=== PATIENT | male | born 1985 | race Caucasian/White ===

== ENCOUNTER 2019-03-09 20:53 | Emergency (ER) | payer SELFPAY ==
--- NOTE | 2019-03-09 21:00 | NUR ---
CALLED FOR TRIAGE, PT NOT IN WAITING ROOM.
--- NOTE | 2019-03-09 21:07 | NUR ---
CALLED FOR TRIAGE, PT NOT IN WAITING ROOM.
--- NOTE | 2019-03-09 21:12 | NUR ---
CALLED FOR TRIAGE, PT NOT IN WAITING ROOM.
--- NOTE | 2019-03-09 22:39 | NUR ---
CALLED FOR TRIAGE, PT NOT IN WAITING ROOM.
== END 2019-03-09 22:40 | disposition left against medical advice (07) ==
LOC: ER 20:56
DX: Z53.21 Procedure and treatment not carried out due to patient leaving prior to being seen by health care provider (principal)